=== PATIENT | female | born 1995 | race American Indian/Alaskan Native ===

== ENCOUNTER 2016-12-03 14:50 | Emergency (ER) | payer SELFPAY ==
[2016-12-03 17:03] LABS: Basophils % (Auto) 0.3 % (0.0-1.8); Eosinophils % (Auto) 2.3 % (0.0-4.3); Hematocrit 33.1 % (30.3-42.9); Hemoglobin 10.4 gm/dl (10.1-14.3); Mean Corpuscular HGB Conc 32 % (30-34); Mean Corpuscular Volume 80 fl (79-97); Platelet Count 393 K/mm3 (140-440); Red Blood Count 4.13 M/mm3 (3.65-5.03); Red Cell Distribution Width 14.7 % (13.2-15.2); White Blood Count 7.7 K/mm3 (4.5-11.0)
[2016-12-03 17:17] LABS: Mean Corpuscular Hemoglobin 25 pg (28-32)
[2016-12-03 17:57] LABS: Bilirubin,Urine NEG (Negative); Blood,Urine MOD (Negative); Ketones,Urine NEG (Negative); Leukocyte Esterase,Urine NEG (Negative); Mucus,Urine FEW /HPF; Nitrite,Urine NEG (Negative); Protein,Urine <15 mg/dL mg/dL (Negative); Urobilinogen,Urine < 2.0 mg/dL (<2.0)
[2016-12-03 19:22] VITALS: BP 127/81
--- NOTE | 2016-12-03 19:27 | Emergency Department Report ---
ED Female HPI - General Chief complaint: Vaginal Bleeding Stated complaint: VAGINAL BLEEDING Time Seen by Provider: 12/03/16 18:44 Source: patient Mode of arrival: Ambulatory Limitations: No Limitations - History of Present Illness Initial comments: Patient relates that since she stopped the depth of shot she has had continual low-grade vaginal bleeding for the past 6 weeks using 2 pads per day. She denies weakness, dizziness, palpitations, or syncope. Denies pain. MD Complaint: vaginal bleeding -: week(s) (6) Quality: cramping Are you Now?: No Associated Symptoms: denies other symptoms. denies: nausea/vomiting, fever/ chills, headaches, loss of appetite, hematuria, rash, shortness of breath, syncope, weakness - Related Data Sexually active: Yes Home Medications Medication Instructions Recorded Confirmed Last Taken No Known Home Medications [No 12/03/16 12/03/16 Unknown Reported Home Medications] Allergies Allergy/AdvReac Type Severity Reaction Status Date / Time amoxicillin Allergy Unknown Verified 12/03/16 16:15 ED Review of Systems ROS: Stated complaint: VAGINAL BLEEDING Other details as noted in HPI Constitutional: denies: chills, fever Eyes: denies: eye pain, eye discharge, vision change ENT: denies: ear pain, throat pain Respiratory: denies: cough, shortness of breath, wheezing Cardiovascular: denies: chest pain, palpitations, dyspnea on exertion, orthopnea , edema, syncope, paroxysmal nocturnal dyspnea Gastrointestinal: denies: abdominal pain, nausea, vomiting, diarrhea, constipation Genitourinary: abnormal menses. denies: urgency, dysuria, frequency, hematuria , discharge, dyspareunia Musculoskeletal: denies: back pain, joint swelling, arthralgia Skin: denies: rash, lesions, change in color, change in hair/nails, pruritus Neurological: denies: headache, numbness, paresthesias ED Past Medical Hx - Past Medical History Hx Hypertension: No Hx Congestive Heart Failure: No Hx Diabetes: No Hx Deep Vein Thrombosis: No Hx Renal Disease: No Hx Sickle Cell Disease: No Hx Seizures: No Hx Asthma: No Hx COPD: No Hx HIV: No Additional medical history: ANEMIA - Surgical History Past Surgical History?: No - Social History Smoking Status: Never Smoker Substance Use Type: None - Medications Home Medications: Home Medications Medication Instructions Recorded Confirmed Last Taken Type No Known Home Medications [No 12/03/16 12/03/16 Unknown History Reported Home Medications] ED Physical Exam - General Limitations: No Limitations General appearance: alert, in no apparent distress - Head Head exam: Present: atraumatic, normocephalic - Eye Eye exam: Present: normal appearance, PERRL, EOMI - ENT ENT exam: Present: normal exam, mucous membranes moist - Neck Neck exam: Present: normal inspection - Respiratory Respiratory exam: Present: normal lung sounds bilaterally. Absent: respiratory distress - Cardiovascular Cardiovascular Exam: Present: regular rate - GI/Abdominal GI/Abdominal exam: Present: soft. Absent: distended, tenderness, guarding, rebound, rigid - Extremities Exam Extremities exam: Present: normal inspection - Back Exam Back exam: Present: normal inspection. Absent: CVA tenderness (R), CVA tenderness (L) - Neurological Exam Neurological exam: Present: alert, oriented X3, CN II-XII intact, normal gait - Skin Skin exam: Present: warm, dry, intact, normal color. Absent: rash, cyanosis, petechiae, pallor ED Course Vital Signs 12/03/16 12/03/16 16:15 19:21 Temperature 98.0 F 98.2 F Pulse Rate 78 65 Respiratory 17 18 Rate Blood Pressure 126/88 Blood Pressure 127/81 [Right] O2 Sat by Pulse 100 100 Oximetry ED Medical Decision Making - Lab Data Result diagrams: 12/03/16 16:37 Critical care attestation.: If time is entered above; I have spent that time in minutes in the direct care of this critically ill patient, excluding procedure time. ED Disposition Clinical Impression: Dysfunctional uterine bleeding Disposition: DISCHARGED TO HOME OR SELFCARE Is pt being admited?: No Condition: Stable Instructions: Dysfunctional Uterine Bleeding (ED) Referrals: JAMESON PERES MD [Staff Physician] - 3-5 Days PRIMARY CARE, [Primary Care Provider] - 3-5 Days
== END 2016-12-03 19:31 | disposition home or self-care (01) ==
LOC: ED 14:50
DX: N93.8 Other specified abnormal uterine and vaginal bleeding (principal); Z88.1 Allergy status to other antibiotic agents
CPT/HCPCS: 36415; 81001; 84703; 85025; 86850; 86900; 86901; 99283

== ENCOUNTER 2018-10-16 11:12 | Emergency (ER) | payer SELFPAY ==
--- NOTE | 2018-10-16 11:35 | Emergency Department Report ---
Blank Doc - Documentation Documentation: 23 y o female presents with swelling to right jaw states sx 2 weeks ago, [facility] was given abx no relief went to dentist today foe dental pain, she states dentist pulled tooth and swelling is worse and in severe pain, she was told to come to the ER. jaw swollen, cant open mouth tender to palp ACC pain meds, iv Antibiotics Reevaluate
[2018-10-16] MEDS ORDERED: ZOFRAN IV ONE ×2 (14:10→17:36)
[2018-10-16] MEDS ORDERED: MORPHINE IV ONE (14:10)
[2018-10-16] MEDS ORDERED: NACL 0.9% 1000 ML 1,000 ML IV ONE (14:11)
--- NOTE | 2018-10-16 14:15 | Emergency Department Report ---
<RADHA LY - Last Filed: 10/16/18 18:38> ED ENT HPI - General Chief complaint: Dental/Oral Stated complaint: LT JAW PAIN/TOOTH Time Seen by Provider: 10/16/18 11:32 - Related Data Home Medications Medication Instructions Recorded Confirmed Last Taken No Known Home Medications [No 12/03/16 12/03/16 Unknown Reported Home Medications] Allergies Allergy/AdvReac Type Severity Reaction Status Date / Time amoxicillin Allergy Unknown Verified 12/03/16 16:15 ED Dental HPI - General Chief complaint: Dental/Oral Stated complaint: LT JAW PAIN/TOOTH Time Seen by Provider: 10/16/18 11:32 - Related Data Home Medications Medication Instructions Recorded Confirmed Last Taken No Known Home Medications [No 12/03/16 12/03/16 Unknown Reported Home Medications] Allergies Allergy/AdvReac Type Severity Reaction Status Date / Time amoxicillin Allergy Unknown Verified 12/03/16 16:15 ED Past Medical Hx - Medications Home Medications: Home Medications Medication Instructions Recorded Confirmed Last Taken Type No Known Home Medications [No 12/03/16 12/03/16 Unknown History Reported Home Medications] ED Course - Consultations Consultation #1: 10/16/18 18:[address] Michaels ([facility])- will accept patient in transfer to the ED ED Medical Decision Making - Lab Data Result diagrams: 10/16/18 14:47 10/16/18 14:47 - Radiology Data Radiology results: report reviewed (CT neck), image reviewed (CT neck) [place] [address] Cat Scan Report Signed Patient: MAX ALFONSO MR#: [id number] : 1995 Acct:[id number] Age/Sex: 23 / F ADM Date: 10/16/18 Loc: ED Attending Dr: Ordering Physician: DANIELLE MARVIN MD Date of Service: 10/16/18 Procedure(s): CT neck w con Accession Number(s): [id number] cc: DANIELLE MARVIN MD FINAL REPORT EXAM: CT NECK W CON HISTORY: Right neck pain and swelling TECHNIQUE: Following administration of IV contrast axial helical imaging was performed through the neck with sagittal and coronal reformatted images obtained. Comparison: None FINDINGS: There is the appearance of a recent tooth extraction involving a right mandibular molar tooth. Lateral and posterior to the extraction site there is a buccal space collection of air and fluid with marginal enhancement consistent with abscess. This measures approximately 10 millimeters (AP) by 4 millimeters (lateral) by a 10 millimeters (craniocaudal). There is diffuse inflammatory change in the soft tissues of the face on the right involving the subcutaneous fat with some extension deep to the platysma muscle in the region of the right submandibular gland. There is no evidence of extension of the inflammatory process into the floor of the mouth or the deep spaces of the neck. There is no evidence of compromise of the airway. There is normal enhancement of the major cervical vascular structures. The paranasal and mastoid sinuses and orbital contents are unremarkable. IMPRESSION: 1. Approximately 10 millimeter x 10 millimeter x 4 millimeter lateral right mandibular buccal space abscess adjacent to a recent right mandibular molar tooth extraction site. 2. Inflammatory changes in the soft tissues of the face on the right involving the subcutaneous fat with some extension deep to the platysma muscle in the region of the right submandibular gland. The above findings were discussed with Dr Ly at the 6:15 p.m. October 16, 2018. Transcribed By: ED Dictated By: KATIE MONTALVO MD Electronically Authenticated By: KATIE MONTALVO MD Signed Date/Time: 10/16/181816 DD/ 15 TD/TT: 10/16/181815 ED Disposition Clinical Impression: Mandibular swelling, Abscess of buccal space of mouth Leukocytosis (leucocytosis) Qualifiers: Leukocytosis type: unspecified Qualified Code(s): D72.829 - Elevated white blood cell count, unspecified Disposition: DC/TX-70 ANOTHER TYPE HLTHCARE Is pt being admited?: No Does the pt Need Aspirin: No Condition: Fair Referrals: LETI MCCLURE MD [Primary Care Provider] - 3-5 Days Time of Disposition: 18:39 (awaiting transport) <DANIELLE MARVIN - Last Filed: 10/18/18 20:15> ED ENT HPI - General Source: patient, EMS Mode of arrival: Ambulatory Limitations: No Limitations - History of Present Illness Initial comments: Patient has been having right Jaw pain for 2 weeks. She was placed on Cl indamycin by her Dentist for 2 weeks and today her tooth was extracted by the Dentist. She said that her Jaw pain and swelling has worsened after the Dental extraction today and her Dentist to her to go to the ED for evaluation. complaint: other (Right Jaw pain) -: Gradual, week(s) (2 weeks.) Location: other (Right Jaw) Severity: severe Severity scale (0 -10): 8 Quality: sharp, constant Consistency: constant Improves with: none Worsens with: none Context-Epistaxis: recent surgery/procedure (Dental Extraction today.) Context- Dental: history of dental caries, poor dental care Associated Symptoms: toothache ED Dental HPI - General Source: patient, EMS Mode of arrival: Ambulatory Limitations: No Limitations ED Review of Systems ROS: Stated complaint: LT JAW PAIN/TOOTH Other details as noted in HPI Comment: All other systems reviewed and negative Constitutional: denies: chills, fever Eyes: denies: eye pain, eye discharge, vision change ENT: dental pain, other (Right Jaw pain). denies: ear pain, throat pain Respiratory: denies: cough, shortness of breath, wheezing Cardiovascular: denies: chest pain, palpitations, edema Endocrine: no symptoms reported Gastrointestinal: denies: abdominal pain, nausea, diarrhea Genitourinary: denies: urgency, dysuria, discharge Musculoskeletal: denies: back pain, joint swelling, arthralgia Skin: denies: rash, lesions Neurological: denies: headache, weakness, paresthesias Psychiatric: denies: anxiety, depression Hematological/Lymphatic: denies: easy bleeding, easy bruising ED Past Medical Hx - Past Medical History Hx Hypertension: No Hx Congestive Heart Failure: No Hx Diabetes: No Hx Deep Vein Thrombosis: No Hx Renal Disease: No Hx Sickle Cell Disease: No Hx Seizures: No Hx Asthma: No Hx COPD: No Hx HIV: No Additional medical history: ANEMIA - Social History Smoking Status: Never Smoker Substance Use Type: None ED Physical Exam - General Limitations: No Limitations General appearance: alert, in no apparent distress - Head Head exam: Present: atraumatic, normocephalic, normal inspection - Eye Eye exam: Present: normal appearance, PERRL, EOMI Pupils: Present: normal accommodation - ENT ENT exam: Present: mucous membranes moist, other (Right Lower Jaw is packed with gauze) - Neck Neck exam: Present: normal inspection, full ROM. Absent: tenderness, meningismus - Respiratory Respiratory exam: Present: normal lung sounds bilaterally. Absent: respiratory distress, wheezes - Cardiovascular Cardiovascular Exam: Present: regular rate, normal rhythm, normal heart sounds. Absent: systolic murmur, diastolic murmur, rubs, gallop - GI/Abdominal GI/Abdominal exam: Present: soft, normal bowel sounds. Absent: distended, tenderness, guarding, rebound - Extremities Exam Extremities exam: Present: normal inspection, full ROM, normal capillary refill. Absent: tenderness - Back Exam Back exam: Present: normal inspection, full ROM. Absent: tenderness, CVA tenderness (R), CVA tenderness (L) - Neurological Exam Neurological exam: Present: alert, oriented X3, CN II-XII intact - Psychiatric Psychiatric exam: Present: normal affect, normal mood - Skin Skin exam: Present: warm, dry, intact, normal color. Absent: rash ED Course Vital Signs 10/16/18 10/16/18 10/16/18 11:34 17:32 17:52 Temperature 98.5 F Pulse Rate 83 97 H Respiratory 16 20 16 Rate Blood Pressure 144/85 Blood Pressure 134/77 [Right] O2 Sat by Pulse 98 100 Oximetry 10/16/18 10/16/18 18:42 19:15 Temperature Pulse Rate Respiratory 16 15 Rate Blood Pressure Blood Pressure [Right] O2 Sat by Pulse Oximetry - Reevaluation(s) Reevaluation #1: 10/16/18 17:05 Patient was signed out to Dr Ron Ly at the end of my shift pending CT scan of t he face/neck prior to admission to the hospital for further management. Patient care so far has been discussed in details with Dr Ly. ED Medical Decision Making - Lab Data Result diagrams: 10/16/18 14:47 10/16/18 14:47 Critical care attestation.: If time is entered above; I have spent that time in minutes in the direct care of this critically ill patient, excluding procedure time. ED Disposition Is pt being admited?: No Does the pt Need Aspirin: No
[2018-10-16 14:57] LABS: Bilirubin,Urine NEG (Negative); Blood,Urine NEG (Negative); Color,Urine Yellow (Yellow); Mucus,Urine FEW /HPF; Urobilinogen,Urine < 2.0 mg/dL (<2.0)
[2018-10-16 14:59] LABS: Hematocrit 27.9 % (30.3-42.9); Hemoglobin 8.7 gm/dl (10.1-14.3); Mean Corpuscular HGB Conc 31 % (30-34); Mean Corpuscular Volume 80 fl (79-97); Platelet Count 389 K/mm3 (140-440); Red Cell Distribution Width 15.3 % (13.2-15.2)
[2018-10-16 15:04] LABS: HCG Qualitative,Urine Negative (Negative)
[2018-10-16] MEDS ORDERED: CLEOCIN 600 MG/50 mL 600 MG/50 ML BAG IV ONE (15:07)
[2018-10-16 15:09] LABS: INR 1.02 (0.87-1.13)
[2018-10-16 15:21] LABS: Albumin 3.8 g/dL (3.9-5); BUN/Creatinine Ratio 12; Blood Urea Nitrogen 6 mg/dL (7-17); Calcium 8.9 mg/dL (8.4-10.2); Hemolysis Index 6
[2018-10-16 15:33] LABS: Alanine Aminotransferase < 5 units/L (7-56)
[2018-10-16 16:01] LABS: Band Neutrophils # (Manual) 0.7 K/mm3; Basophils % (Manual) 0 % (0.0-1.8); Eosinophils % (Manual) 0 % (0.0-4.3); Total Cells Counted 100
[2018-10-16 16:02] LABS: Anisocytosis 1+; Hypochromasia 1+; Ovalocytes 1+
[2018-10-16 16:03] LABS: Platelet Estimate Consistent w Auto
[2018-10-16 17:33] VITALS: BP 134/77
[2018-10-16] MEDS ORDERED: fentaNYL DRIP Premix 2,000 MCG/100 ML BAG IV ONE (17:35)
[2018-10-16] MEDS ORDERED: ZOFRAN ONE (17:35)
[2018-10-16] MEDS ORDERED: SUBLIMAZE ONE (17:36)
[2018-10-16] MEDS ORDERED: SUBLIMAZE IV ONE (17:36)
--- NOTE | 2018-10-16 18:17 | Cat Scan Report ---
FINAL REPORT EXAM: CT NECK W CON HISTORY: Right neck pain and swelling TECHNIQUE: Following administration of IV contrast axial helical imaging was performed through the n gemini with sagittal and coronal reformatted images obtained. Comparison: None FINDINGS: There is the appearance of a recent tooth extraction involving a right mandibular molar tooth. Lateral and posterior to the extraction site there is a buccal space collection of air and fluid wit h marginal enhancement consistent with abscess. This measures approximately 10 millimeters (AP) by 4 millimeters (lateral) by a 10 millimeters (craniocaudal). There is diffuse inflammatory change in the soft tissues of the face on the right involving the subcu taneous fat with some extension deep to the platysma muscle in the region of the right submandibular gland. There is no evidence of extension of the inflammatory process into the floor of the mouth or the deep spaces of the neck. There is no evidence of compromise of the airway. There is normal enhancement of the major cervical vascular structures. The paranasal and mastoid sinuses and orbital contents are unremarkable. IMPRESSION: 1. Approximately 10 millimeter x 10 millimeter x 4 millimeter lateral right mandibular buccal space a bscess adjacent to a recent right mandibular molar tooth extraction site. 2. Inflammatory changes in the soft tissues of the face on the right involving the subcutaneous fat w ith some extension deep to the platysma muscle in the region of the right submandibular gland. The above findings were discussed with Dr Navarrete at the 6:15 p.m. October 16, 2018.
[2018-10-16] MEDS ORDERED: DILAUDID IV ONE (18:36)
== END 2018-10-16 19:47 | disposition other institution (70) ==
LOC: ED 11:12
DX: K12.2 Cellulitis and abscess of mouth (principal); D72.829 Elevated white blood cell count, unspecified
CPT/HCPCS: 36415; 70491; 80053; 81001; 81025; 85007; 85025; 85610; 85730; 87040; 96365; 96375; 96376; 99285; J1170; J2270; J2405; J3010; J7030; Q9967

== ENCOUNTER 2019-06-26 13:15 | Emergency (ER) | payer OTHER ==
[2019-06-26 14:05] VITALS: BP 139/82
--- NOTE | 2019-06-26 14:05 | Emergency Department Report ---
Blank Doc - Documentation Documentation: 24 y/o female presents c/o of 7 weeks of spotting and pelvic cramping. Curren tly being treated for Herpes and having Green discharge. No dysuria. Last sexual contact 1 week ago (Female Female). This initial assessment/diagnostic orders/clinical plan/treatment(s) is/are subject to change based on patient's health status, clinical progression and re- assessment by fellow clinical providers in the ED. Further treatment and workup at subsequent clinical providers discretion. Patient/guardians urged not to elope from the ED as their condition may be serious if not clinically assessed and managed. Initial orders include: urinalysis GC
[2019-06-26 15:04] LABS: Bilirubin,Urine Negative (Negative); Blood,Urine Negative (Negative); Color,Urine Yellow (Yellow); Protein,Urine <15 mg/dL mg/dL (Negative); Urobilinogen,Urine < 2.0 mg/dL (<2.0)
[2019-06-26 15:11] LABS: Mucus,Urine FEW /HPF
[2019-06-26 15:13] LABS: HCG Qualitative,Urine Negative (Negative)
[2019-06-26] MEDS ORDERED: ZITHROMAX PO ONE (16:36)
[2019-06-26] MEDS ORDERED: FLAGYL PO ONE (16:36)
--- NOTE | 2019-06-26 16:48 | Emergency Department Report ---
ED Female HPI - General Chief complaint: Vaginal Bleeding Stated complaint: VAGINAL SPOTTING/CRAMPING Time Seen by Provider: 06/26/19 14:01 Source: patient Mode of arrival: Ambulatory Limitations: No Limitations - History of Present Illness Initial comments: Patient is a 24-year-old [place] female who is presenting with several weeks of lower abdominal cramping and now has some vaginal discharge and spotting. Patient denies painful urination or urinary frequency. Patient states that she has some crampy lower abdominal and groin pain. Patient states she only has female female sexual relations. - Related Data Previous Rx's Medication Instructions Recorded Last Taken Type metroNIDAZOLE [Flagyl] 500 mg PO Q12HR #14 tab 06/26/19 Unknown Rx Allergies Allergy/AdvReac Type Severity Reaction Status Date / Time amoxicillin Allergy Unknown Verified 12/03/16 16:15 ED Review of Systems ROS: Stated complaint: VAGINAL SPOTTING/CRAMPING Other details as noted in HPI Comment: All other systems reviewed and negative ED Past Medical Hx - Past Medical History Previous Medical History?: Yes Hx Hypertension: Yes Hx Congestive Heart Failure: No Hx Diabetes: No Hx Deep Vein Thrombosis: No Hx Renal Disease: No Hx Sickle Cell Disease: No Hx Seizures: No Hx Asthma: No Hx COPD: No Hx HIV: No Additional medical history: ANEMIA. genital herpes - Surgical History Past Surgical History?: Yes Additional Surgical History: - Social History Smoking Status: Never Smoker Substance Use Type: Alcohol - Medications Home Medications: Home Medications Medication Instructions Recorded Confirmed Last Taken Type metroNIDAZOLE [Flagyl] 500 mg PO Q12HR #14 tab 06/26/19 Unknown Rx ED Physical Exam - General Limitations: No Limitations General appearance: alert, in no apparent distress - Head Head exam: Present: atraumatic, normocephalic - Eye Eye exam: Present: normal appearance - ENT ENT exam: Present: mucous membranes moist - Neck Neck exam: Present: normal inspection - Respiratory Respiratory exam: Present: normal lung sounds bilaterally. Absent: respiratory distress, wheezes, rales, rhonchi - Cardiovascular Cardiovascular Exam: Present: regular rate, normal rhythm, normal heart sounds. Absent: systolic murmur, diastolic murmur, rubs, gallop - GI/Abdominal GI/Abdominal exam: Present: soft, tenderness, normal bowel sounds. Absent: distended (low suprapubic tenderness on palpation.), guarding, rebound, rigid - External exam: Present: normal external exam Speculum exam: Present: cervical discharge (patient's cervix is friable and bled easily during the pelvic exam although the patient had no cervical motion tenderness) Bi-manual exam: Absent: cervical motion tendernes, adnexal tenderness - Extremities Exam Extremities exam: Present: normal inspection - Back Exam Back exam: Present: normal inspection - Neurological Exam Neurological exam: Present: alert, oriented X3 - Psychiatric Psychiatric exam: Present: normal affect, normal mood - Skin Skin exam: Present: warm, dry, intact, normal color. Absent: rash ED Course Vital Signs 06/26/19 14:02 Temperature 98.6 F Pulse Rate 105 H Respiratory 16 Rate Blood Pressure 139/82 O2 Sat by Pulse 100 Oximetry ED Medical Decision Making - Lab Data Lab Results 06/26/19 Range/Units Unknown Urine Color Yellow (Yellow) Urine Turbidity Clear (Clear) Urine pH 7.0 (5.0-7.0) Ur Specific [place] 1.010 (1.003-1.030) Urine Protein <15 mg/dl (Negative) mg/dL Urine Glucose (UA) Negative (Negative) mg/dL Urine Ketones Negative (Negative) mg/dL Urine Blood Negative (Negative) Urine Nitrite Negative (Negative) Urine Bilirubin Negative (Negative) Urine Urobilinogen < 2.0 (<2.0) mg/dL Ur Leukocyte Esterase Negative (Negative) Urine WBC (Auto) 1.0 (0.0-6.0) /HPF Urine RBC (Auto) 3.0 (0.0-6.0) /HPF U Epithel Cells (Auto) 4.0 (0-13.0) /HPF Urine Mucus Few /HPF Urine HCG, Qual Negative (Negative) Wet prep shows patient has a large amount of clue cells. - Medical Decision Making Pelvic exam was not consistent with pelvic inflammatory disease. Patient does have bacterial vaginosis and will be treated appropriately. Patient be discharged home. Critical care attestation.: If time is entered above; I have spent that time in minutes in the direct care of this critically ill patient, excluding procedure time. ED Disposition Clinical Impression: Bacterial vaginitis Disposition: - TO HOME OR SELFCARE Is pt being admited?: No Does the pt Need Aspirin: No Condition: Stable Instructions: Bacterial Vaginosis (ED) Referrals: PRIMARY CARE, [Primary Care Provider] - 3-5 Days Time of Disposition: 16:48
== END 2019-06-26 16:55 | disposition home or self-care (01) ==
LOC: ED 13:15
DX: N76.0 Acute vaginitis (principal); B96.89 Other specified bacterial agents as the cause of diseases classified elsewhere; I10 Essential (primary) hypertension; Z88.1 Allergy status to other antibiotic agents; Z79.899 Other long term (current) drug therapy
CPT/HCPCS: 81001; 81025; 87210; 87591; 99284

== ENCOUNTER 2021-02-27 00:03 | Emergency (ER) | payer MEDICAID, OTHER ==
[2021-02-27 00:13] VITALS: BP 138/91
[2021-02-27] MEDS ORDERED: ONDANSETRON 4 MG/2 ML INJ IV ONE (00:33)
[2021-02-27 01:16] LABS: Alanine Aminotransferase 8 units/L (7-56); Albumin 4.7 g/dL (3.9-5); Blood Urea Nitrogen 8 mg/dL (7-17); Hemolysis Index 6
[2021-02-27 01:30] LABS: BUN/Creatinine Ratio 13
== END 2021-02-27 02:20 | disposition left against medical advice (07) ==
LOC: ED 00:03
DX: R42 Dizziness and giddiness (principal); Z53.21 Procedure and treatment not carried out due to patient leaving prior to being seen by health care provider
CPT/HCPCS: 36415; 80053; J2405; 80320; G0480